=== PATIENT | female | born 1940 | race Caucasian/White ===

== ENCOUNTER 2023-08-26 06:33 | Inpatient (IN) | payer MEDICARE, BC, SELFPAY ==
--- NOTE | 2023-07-26 13:44 | CM ---
Patient is scheduled for an elective L Reverse TSA on 08/26/23. Spoke with patient prior to surgery via telephone. Patient had a L THR (2017) and R THR and R TKR (both in 2020) at . Reintroduced role of Orthopedic Navigator. Patient reports that she
lives with her significant other in a two story home. There is one step to enter and a flight of steps to the second floor (bilateral rails). There is a powder room on the first floor. She currently functions independently and uses a cane at times.
She also has a rolling walker, toilet rails, hip kit and raised toilet seat. She has had VN services through [facility]. PCP id Dr. Uriel Iniguez.
Discussed orthopedic program and post surgical plans. Reviewed anticipated length of stay and assistance that she may need at discharge. Explained that goal is for him to return home at discharge. Also reviewed MD follow up and transition to
outpatient therapy. Patient is in agreement with tentative plan and states that her significant other will be home with her and can assist if needed.
Patient will complete online education.
Plan: Orthopedic Navigator will be involved in the care of patient after surgery and will reassess discharge needs at that time.
[2023-08-03 12:21] VITALS: BMI 28.5
[2023-08-03 13:52] LABS: Hematocrit 39.6 % (37.0-47.0); Hemoglobin 14.1 g/dL (12.0-16.0); Mean Corp Hgb Conc. 35.6 g/dL (33.0-37.0); Mean Corpuscular Hgb 33.9 pg (27.0-31.0); Mean Corpuscular Volume 95.2 fL (81.0-99.0); Mean Platelet Volume 9.2 fL (7.4-10.4); Platelet Count 362 10^3/uL (130-400); Red Blood Cell Count 4.16 10^6/uL (4.20-5.40); Red Cell Dist. Width 12.5 % (11.5-14.5); White Blood Cell Count 6.2 10^3/uL (4.8-10.8)
[2023-08-03 14:12] LABS: ALT (SGPT) 25 U/L (0-35); AST (SGOT) 34 U/L (14-36); Albumin 4.3 g/dl (3.5-5.0); Alkaline Phosphatase 46 U/L (38-126); Blood Urea Nitrogen 11 mg/dl (7-17); Calcium 9.7 mg/dl (8.4-10.2); Carbon Dioxide 29 mmol/L (22-30); Chloride 95 mmol/L (98-107); Estimated Creatinine Clearance 58 ml/min; Glucose 107 mg/dl (70-99); Potassium 4.2 mmol/L (3.5-5.1); Sodium 132 mmol/L (135-145); Total Bilirubin 0.8 mg/dl (0.2-1.3); Total Protein 7.2 g/dl (6.3-8.2); eGFR > 60.00
[2023-08-03 15:29] VITALS: BMI 28.5
[2023-08-04 10:37] LABS: Glycohemoglobin (HgbA1c) 5.3 % (4.0-5.6)
[2023-08-26] VITALS (15 sets, daily range): BP systolic 117–162; BP diastolic 72–95; PULSE 81; O2SAT 95
[2023-08-26] MEDS: TYLENOL 1000 MG PO (09:58)
[2023-08-26] MEDS: CELEBREX 200 MG PO (09:59)
[2023-08-26] MEDS: NORMOSOL-R 1000 IV (10:00)
--- NOTE | 2023-08-26 10:16 | CM ---
Reviewed chart. Patient admitted as planned for elective L Reverse TSA. The discharge plan is for patient to return home at discharge. She will have support from her significant other when she goes home. Reviewed that she will do a home exercise
program upon discharge after surgery and that she will not need VN services. Also reviewed transition to outpatient PT and MD follow up.
Patient will use [facility] for discharge prescriptions.
No needs currently identified.
--- NOTE | 2023-08-26 11:29 | W.PN.UPDATE ---
Update Note
Progress Note Update
L shoulder OA s/p L Reverse TSA w/ Dr Pederson 08/26/23
- s/p R TKA, 04/2022, R DEACON, 06/2021, and L DEACON, 05/2018, by Dr Galindo
DVT prophylaxis - ASA, b/l venous foot pumps
HTN - + parameters - monitor BP
PACs, asymptomatic, RBBB, and long QT syndrome - monitor on tele
- Avoid QT prolongation meds such as Zofran
GERD - add Pepcid HS
Multilevel degenerative disc disease with radiculopathy - consider Gabapentin or Lyrica
Daily alcohol - reported 3 glasses of wine/daily
- Add thiamine and folic acid daily
- Watch for potential s/sx of withdrawal
Hyperlipidemia
Venous varicosities, status post bilateral lower extremity venous ligation
Dysphagia
Colon polyps
History of diverticulitis with perforation, status post sigmoidectomy and colostomy with subsequent reversal
Fatty liver disease
Occipital neuralgia 2017
Raynaud's syndrome
Pelvic floor dysfunction, completing pelvic floor therapy
Anxiety
Osteopenia
Insomnia
Sinus infection, early July 2022, resolved with Azithromycin
Mild hyponatremia
Remote history of tobacco abuse
--- NOTE | 2023-08-26 13:00 | SUR.PHASEI ---
Pt observed to have slight drooping to left eyelid upon admission to PACU, Dr. Pichardo notified and at pt bedside to evaluate. Per Dr. 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
[2023-08-26] MEDS: DILAUDID 0.25 MG IV ×2 (13:08→13:24)
[2023-08-26] MEDS: NSS 1000 IV (14:04)
[2023-08-26] MEDS: ORETIC PO (15:51)
--- NOTE | 2023-08-26 16:11 | PTCARENOTE ---
Received patient around 1445 via bed in stable condition. Left arm in sling with +movement + sensation slight tingle in right thumb. Tele on patient. Pain controlled. Patient DTV about 1840. Patient and significant other oriented to room. Call [facility]
in place.
[2023-08-26] MEDS: FOLVITE 1 MG PO (16:18)
[2023-08-26] MEDS: VITAMIN B1 100 MG PO (16:18)
[2023-08-26] MEDS: TYLENOL 650 MG PO ×2 (16:18→20:42)
[2023-08-26] MEDS: ZETIA 10 MG PO (16:18)
[2023-08-26] MEDS: ASPIRIN 325 MG PO (17:27)
[2023-08-26] MEDS: ANCEF 5 IV (17:27)
[2023-08-26] MEDS: COZAAR 100 MG PO (20:41)
[2023-08-26] MEDS: ORETIC 25 MG PO (20:42)
[2023-08-26] MEDS: ATIVAN 0.5 MG PO (20:42)
[2023-08-26] MEDS: SENOKOT 17.1999999999999993 MG PO (20:42)
[2023-08-26] MEDS: COLACE 100 MG PO (20:42)
[2023-08-26] MEDS: BACTROBAN 2% OINTMENT 1 APPLIC NASAL (20:43)
--- NOTE | 2023-08-26 21:26 | PTCARENOTE ---
Pt voided 260cc yellow urine in hat at 19:30. declined PVR bladder scan.
[2023-08-26] MEDS: ROXICODONE 5 MG PO (22:45)
[2023-08-27] MEDS: TYLENOL PO ×2 (00:14→04:01)
[2023-08-27] MEDS: ANCEF 5 IV (02:07)
[2023-08-27] MEDS: ROXICODONE 10 MG PO (03:25)
[2023-08-27 03:47] VITALS: BP 149/90
[2023-08-27 07:16] VITALS: BP 132/66
--- NOTE | 2023-08-27 07:46 | W.PN.ORTHO ---
Today's Communication / Plan
-
Sling
PT
Nonweightbearing left upper extremity
Aspirin for DVT prophylactics
Discharged home today
Assessment
.
Distal Motor Intact: Yes
Dressing:
Clean, dry and intact.
Plan
.
Surgery / Date: L reverse TSA 08/26/23 Dr Pederson
DVT Prophylaxis: Aspirin
Activity:
Out of bed.
PT/OT
Discharge Plan: Home w/ VN
Subjective
.
.:
Patient resting comfortably.
Vital Signs and Labs
.
Vital Signs and Labs:
Lab Results
08/03/23 12:13
08/03/23 12:13
Temp Pulse Resp BP Pulse Ox
98.6 F 80 18 149/90 91
08/27/23 03:47 08/27/23 03:47 08/27/23 03:47 08/27/23 03:47 08/27/23 03:47
Non-invasive Hgb result: 12.0
[2023-08-27] MEDS: TOPROL XL 25 MG PO (08:30)
[2023-08-27] MEDS: CELEBREX 200 MG PO (08:30)
[2023-08-27] MEDS: ZETIA 10 MG PO (08:30)
[2023-08-27] MEDS: FOLVITE 1 MG PO (08:30)
[2023-08-27] MEDS: VITAMIN B1 100 MG PO (08:30)
[2023-08-27] MEDS: SENOKOT PO ×2 (08:30→08:41)
[2023-08-27] MEDS: ASPIRIN 325 MG PO (08:31)
[2023-08-27] MEDS: TYLENOL 650 MG PO (08:31)
[2023-08-27] MEDS: COLACE PO ×2 (08:31→08:41)
[2023-08-27] MEDS: BACTROBAN 2% OINTMENT 1 APPLIC NASAL (08:31)
[2023-08-27] MEDS: ORETIC 25 MG PO (08:33)
--- NOTE | 2023-08-27 08:45 | W.DS.TRANS ---
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
-
Discharge Instructions:
Sleep Apnea Risk Low
Discharge Diagnosis/Procedures L shoulder OA s/p L Reverse TSA w/ Dr Pederson
24
Diet Regular
Activity As tolerated
Additional Activity Non-weightbearing left upper extremity
Driving Restrictions Not until seen by your Dr
Bathing Restrictions OK to Shower
Wound Care Leave dressing on until seen by your surgeon's
office in 2 weeks for follow-up.
Instructions:
Stand-Alone Forms: Total Shoulder Replacement D/C
Changes to Home Medications: No
Discharge Medications:
DC Medications w/original date entered in [facility]
azelastine 137 mcg (0.1 %) nasal spray aerosol 2 spray intranasal BID Allergies 06/08/21
hydrochlorothiazide 25 mg tablet 25 mg PO DAILY Fluid retention/Swelling ##0 06/30/21
losartan 100 mg tablet 100 mg PO HS Blood pressure ##0 06/30/21
Zinc 50 mg PO DAILY Supplement 04/02/22
cholecalciferol (vitamin D3) 800 unit PO DAILY Supplement 04/02/22
ezetimibe 10 mg tablet 10 mg PO DAILY High cholesterol 04/02/22
phendimetrazine tartrate 35 mg tablet 35 mg PO DAILY Weight Gain 04/02/22
vitamin B complex 1 - 2 tab PO DAILYPRN PRN vitamin b12 deficiency 04/02/22
lorazepam 0.5 mg tablet 0.5 mg PO HS ANXIETY #0 tabs 04/27/22
glucosamine-chondroitin 250 mg-200 mg tablet (Osteo Bi-Flex) 2 tab PO DAILY 08/03/23
mupirocin 2 % topical ointment 1 applic intranasal BID #1 tube 08/03/23
psyllium husk 0.4 gram capsule (Fiber (psyllium husk)) 0.8 g PO DAILY 08/03/23
semaglutide (weight loss) 2.4 mg/0.75 mL subcutaneous pen injector (Wegovy) 2.4 mg SC SA 08/03/23
sennosides 8.6 mg tablet (Senokot) 17.2 mg PO HS 08/03/23
metoprolol succinate 25 mg tablet,extended release 24 hr 25 mg PO DAILY 08/15/23
oxycodone 5 mg capsule 5 mg PO Q4H PRN constipation #60 caps 08/27/23
Home Medication Changes
Pending Results: No
[2023-08-27 08:55] VITALS: BP 160/95; BP 171/99; PULSE 130; PULSE 86
--- NOTE | 2023-08-27 09:36 | CM ---
CM following re: discharge planning.
Reviewed pt's chart, met with pt.
Discharge order noted. Pt is aware, expressed her agreement with discharge. IMM reviewed, placed on chart, pt has a copy. Pt stated her partner is coming to transport home. Pt has no skilled services needs.
D/C plan: home no needs. Family support. Partner to transport
== END 2023-08-27 11:07 | disposition home or self-care (01) | DRG 483 ==
LOC: 2 SOUTH 06:33
PROVIDERS: ADMITTING PHYSICIAN Specialist; FAMILY PHYSICIAN Internal Medicine
PROC: 0LS40ZZ Reposition Left Upper Arm Tendon, Open Approach (ICD-10-PCS; 2023-08-26)
PROC: 3E0T33Z Introduction of Anti-inflammatory into Peripheral Nerves and Plexi, Percutaneous Approach (ICD-10-PCS; 2023-08-26)
PROC: 3E0T3BZ Introduction of Anesthetic Agent into Peripheral Nerves and Plexi, Percutaneous Approach (ICD-10-PCS; 2023-08-26)
PROC: 0RRK00Z Replacement of Left Shoulder Joint with Reverse Ball and Socket Synthetic Substitute, Open Approach (ICD-10-PCS; 2023-08-26)
DX: M19.012 Primary osteoarthritis, left shoulder (principal); E87.1 Hypo-osmolality and hyponatremia; I10 Essential (primary) hypertension; E78.5 Hyperlipidemia, unspecified; I45.10 Unspecified right bundle-branch block; K21.9 Gastro-esophageal reflux disease without esophagitis; R13.10 Dysphagia, unspecified; K76.0 Fatty (change of) liver, not elsewhere classified; I49.1 Atrial premature depolarization; M54.81 Occipital neuralgia; M54.10 Radiculopathy, site unspecified; I73.00 Raynaud's syndrome without gangrene; F10.90 Alcohol use, unspecified, uncomplicated; F41.9 Anxiety disorder, unspecified; M85.80 Other specified disorders of bone density and structure, unspecified site; G47.00 Insomnia, unspecified; Z87.891 Personal history of nicotine dependence; Z96.643 Presence of artificial hip joint, bilateral; Z88.8 Allergy status to other drugs, medicaments and biological substances; Z86.010 Personal history of colon polyps; Z90.49 Acquired absence of other specified parts of digestive tract; Z87.19 Personal history of other diseases of the digestive system
CPT/HCPCS: 36415; 73020; 80053; 83036; 85027; 86850; 86900; 86901; 87070; 97166; 97535; C1713; C1776

== ENCOUNTER → 2023-12-09 09:34 | Outpatient (REF) | payer MEDICARE, BC, SELFPAY ==
[2023-12-09 12:19] LABS: ALT (SGPT) 19 U/L (0-35); AST (SGOT) 26 U/L (14-36); Alkaline Phosphatase 54 U/L (38-126); Direct Bilirubin 0.3 mg/dl (0.0-0.4); HDL Cholesterol 65 mg/dl; LDL Cholesterol, Calculated 118 mg/dl; Total Bilirubin 0.6 mg/dl (0.2-1.3); Total Cholesterol 197 mg/dl (50-199); Total Protein 7.1 g/dl (6.3-8.2); Triglyceride 71 mg/dl (10-149); Very Low Density Lipoprotein 14 mg/dl (0-30)
== END ==
LOC: HWLAB 09:34
PROVIDERS: ATTENDING PHYSICIAN Internal Medicine
DX: E78.5 Hyperlipidemia, unspecified (principal); I10 Essential (primary) hypertension; E78.00 Pure hypercholesterolemia, unspecified
CPT/HCPCS: 36415; 80061; 80076

== ENCOUNTER → 2024-05-30 10:28 | Outpatient (REF) | payer MEDICARE, BC, SELFPAY | LOC: HWWDC 10:28 | PROVIDERS: ATTENDING PHYSICIAN Obstetrics & Gynecology; FAMILY PHYSICIAN Internal Medicine | DX: Z12.31 Encounter for screening mammogram for malignant neoplasm of breast (principal) | CPT/HCPCS: 77063; 77067 ==

== ENCOUNTER → 2024-07-31 09:51 | Outpatient (REF) | payer MEDICARE, BC, SELFPAY ==
[2024-07-31 11:42] LABS: % Basophils 0.6 % (0-2); % Eosinophils 1.2 % (0-6); % Immature Granulocytes 0.4 % (0-0.5); % Lymphocytes 22.1 % (20.5-51.1); % Monocytes 13.1 % (1.7-9.3); % Neutrophils 62.6 % (42.2-75.2); Absolute Eosinophils 0.1 10^3/uL (0-0.7); Absolute Lymphocytes 1.1 10^3/uL (1.2-3.4); Absolute Monocytes 0.7 10^3/uL (0.1-0.6); Absolute Neutrophils 3.1 10^3/uL (1.4-6.5); Hematocrit 39.1 % (37.0-47.0); Hemoglobin 12.9 g/dL (12.0-16.0); Mean Corpuscular Hgb 33.1 pg (27.0-31.0); Mean Corpuscular Volume 100.3 fL (81.0-99.0); Mean Platelet Volume 9.4 fL (7.4-10.4); Nucleated Red Blood Cells % 0 %; Platelet Count 278 10^3/uL (130-400); Red Cell Dist. Width 12.5 % (11.5-14.5)
[2024-07-31 12:33] LABS: ALT (SGPT) 19 U/L (0-35); AST (SGOT) 24 U/L (14-36); Albumin 4.3 g/dl (3.5-5.0); Alkaline Phosphatase 54 U/L (38-126); Blood Urea Nitrogen 12 mg/dl (7-17); Calcium 8.9 mg/dl (8.4-10.2); Carbon Dioxide 27 mmol/L (22-30); Chloride 95 mmol/L (98-107); Glucose 99 mg/dl (70-99); HDL Cholesterol 56 mg/dl; LDL Cholesterol, Calculated 141 mg/dl; Potassium 4.2 mmol/L (3.5-5.1); Sodium 132 mmol/L (135-145); Total Cholesterol 214 mg/dl (50-199); Total Protein 7.1 g/dl (6.3-8.2); Triglyceride 85 mg/dl (10-149); Very Low Density Lipoprotein 17 mg/dl (0-30); eGFR > 60.00
== END ==
LOC: HWLAB 09:51
PROVIDERS: ATTENDING PHYSICIAN Internal Medicine
DX: Z00.01 Encounter for general adult medical examination with abnormal findings (principal); E78.5 Hyperlipidemia, unspecified; I10 Essential (primary) hypertension
CPT/HCPCS: 36415; 80053; 80061; 85025

== ENCOUNTER → 2024-08-10 12:57 | Outpatient (REF) | payer MEDICARE, BC, SELFPAY ==
[2024-08-10 15:41] LABS: Magnesium 1.9 mg/dl (1.6-2.3)
[2024-08-10 16:12] LABS: TSH Reflex To Free T4 2.63 uIU/ml (0.47-4.68)
[2024-08-10 16:31] LABS: Vitamin B12 215 pg/ml (239-931)
== END ==
LOC: HWLAB 12:57
PROVIDERS: ATTENDING PHYSICIAN Internal Medicine
DX: E66.3 Overweight (principal); I10 Essential (primary) hypertension; R25.2 Cramp and spasm; D75.89 Other specified diseases of blood and blood-forming organs
CPT/HCPCS: 36415; 82607; 83735; 84443

== ENCOUNTER → 2024-09-14 09:10 | Outpatient (REF) | payer MEDICARE, BC, SELFPAY | LOC: HWRCS 09:10 | PROVIDERS: ATTENDING PHYSICIAN Internal Medicine; FAMILY PHYSICIAN Internal Medicine | DX: I77.810 Thoracic aortic ectasia (principal) | CPT/HCPCS: 93306 ==

== ENCOUNTER → 2025-01-08 14:19 | Outpatient (REF) | payer MEDICARE, BC, SELFPAY | LOC: HWRAD 14:19 | PROVIDERS: ATTENDING PHYSICIAN Pain Medicine Interventional Pain Medicine; FAMILY PHYSICIAN Internal Medicine; REFERRING PHYSICIAN Chiropractor | DX: M54.50 Low back pain, unspecified (principal) | CPT/HCPCS: 72114 ==

== ENCOUNTER → 2025-01-31 09:45 | Outpatient (REF) | payer MEDICARE, BC, SELFPAY ==
[2025-01-31 13:43] LABS: ALT (SGPT) 27 U/L (0-35); AST (SGOT) 35 U/L (14-36); Albumin 4.5 g/dl (3.5-5.0); Alkaline Phosphatase 51 U/L (38-126); HDL Cholesterol 59 mg/dl; LDL Cholesterol, Calculated 146 mg/dl; Total Protein 7.6 g/dl (6.3-8.2); Very Low Density Lipoprotein 14 mg/dl (0-30)
== END ==
LOC: HWLAB 09:45
PROVIDERS: ATTENDING PHYSICIAN Internal Medicine
DX: E78.5 Hyperlipidemia, unspecified (principal); I10 Essential (primary) hypertension
CPT/HCPCS: 36415; 80061; 80076

== ENCOUNTER 2025-03-14 22:22 | Emergency (ER) | payer MEDICARE, BC, SELFPAY ==
[2025-03-14 22:25] VITALS: BP 127/87
[2025-03-14 23:38] VITALS: BMI 29.7
[2025-03-14 23:49] VITALS: BP 141/79
[2025-03-15] VITALS: BP 136/82
--- NOTE | 2025-03-15 00:19 | ED.GENMED ---
History of Present Illness
General
Chief Complaint: Fall
Source: patient
Exam Limitations: none
Time Seen by Provider: 03/14/25 23:41
Nursing documentation reviewed up to this point in time: agreed with
History of Present Illness
History of Present Illness:
84-year-old female that fell in her bathroom this evening. EMS was called to assist her up. She did suffer a lack to the posterior scalp. Patient denies headache, nausea vomiting dizziness chest pain or shortness of breath. She is not on any
blood thinners. She does have a history of syncopal episodes multiple times in the past. She feels that she may have had a syncopal episode.
Past History
Past History
ED Past Medical History: HTN, Hypercholesterolemia and Other (Diverticulosis, diverticulitis, pyelonephritis, DJD of left hip, occipital neuralgia 2011, Raynaud's syndrome); Negative NIDDM or GA
ED Past Surgical History: Bowel resection (Colon resection with colostomy for diverticulitis. Colostomy reversal September 2017.), Gynecological (Hysterectomy) and Other (Bilateral tubal ligation, oral surgery)
Social History
Tobacco: Non-smoker
Alcohol: None
Drug: None
Personal:
Living: alone
Employment: Retired
Family History
Family History: Other (Noncontributory)
Phy Exam
General Physical Exam
General Presentation: well appearing and no apparent distress
General Skin: warm and dry
General Habitus: normal
General Mental: alert
General Hydration: appears well hydrated
ENT Exam
ENT Exam: EOMI, pharynx normal, neck supple and normocephalic
Eye Exam
Eye Exam: PERRL, cornea clear and conjunctiva normal
Cardiovascular Exam
Cardiovascular Exam: regular rate/rhythm, no edema, no murmur and normal peripheral pulses
Pulmonary Exam
Pulmonary Exam: lungs clear, no respiratory distress, no rales, no crackles, no rhonchi, no stridor, no wheezing and no cough
Gastrointestinal Exam
Gastrointestinal Exam: normal bowel sounds, non tender, soft, no organomegaly, no pulsatile mass and non distended
Neurological Exam
Neurological Exam: alert, oriented x3, no motor deficits and speech normal
Musculoskeletal Exam
Musculoskeletal Exam: full ROM and no edema
Skin Exam
Skin Exam: normal color, warm/dry, no rash and no petechia
Psychiatric Exam
Psychiatric Exam: normal mood/affect
Course
Orders/Labs/Results
Orders:
Orders
03/14/25 22:28
CT Cervical Spine W/o Iv Contr Urgent
Comment:
Reason For Exam: fall with head strike
CT Head W/o Iv Contrast Urgent
Comment:
Reason For Exam: fall with head strike
Sacrum/Coccyx 2 View CR [CR Sacrum/coccyx Min 2 View] Urgent
Comment:
Reason For Exam: fall
03/15/25 00:16
Tetanus/Diphth/Acelpertussis [Adacel] 0.5 ml IM .ONCE ONE
03/15/25 00:25
Oxycodone [Roxicodone] 10 mg PO NOW STA
03/15/25 01:30
Orthostatic VS- Treatment ONCE
Vital Signs
Initial and Last Documented VS:
Initial Vital Signs
Temp Pulse Resp BP Pulse Ox
98.7 F 93 16 127/87 97
03/14/25 22:25 03/14/25 22:25 03/14/25 22:25 03/14/25 22:25 03/14/25 22:25
Last Documented Vital Signs
Temp Pulse Resp BP Pulse Ox
98.7 F 97 20 155/74 97
03/14/25 22:25 03/15/25 02:12 03/15/25 02:12 03/15/25 02:12 03/15/25 00:20
*Pulse Oximetry
SaO2: 97
Oxygen Mode of Delivery: Room air
Patient hypoxic: no
*Critical Care Note
Total Time (30-74mins, 75-104mins- exclusive of procedures): Not Applicable
Update Note
Update Note:
NAME: KELVIN VALENCIA
DATE OF EXAM: 03/14/2025
Patient No: [id number]
Physician: PACO^Braden
Date of : 1940
Past Medical History (entered by Technologist):
Reason For Exam (entered by Technologist): pt arrives by ems from home after mechanical fall at home. +head strike, -loc, -thinners
Other Notes (entered by Technologist): prev sent
Additional Information (per [facility]):
CT HEAD (without IV contrast)
CT CERVICAL SPINE (without IV contrast)
IMPRESSION:
HEAD
No acute intracranial abnormality.
No acute intracranial hemorrhage, evidence of acute large territorial infarction, mass or mass effect.
No calvarial fracture.
Mild chronic microvascular ischemic changes of cerebral white matter.
Mild cerebral volume loss.
C-SPINE
No acute fracture.
Normal cervical spine alignment.
Mild chronic multilevel degenerative changes when considering patient's age.
Left shoulder arthroplasty.
Report faxed to the ER and radiology departments and/or is made available via EMR at 11:48 PM ET. Please do not hesitate to contact [facility] at the above number if there are specific questions regarding this study.
Derrek Walker M.D.
This report has been electronically signed and verified by the Radiologist whose name is printed above.
Patient ambulated around the department with a brisk and steady gait. Orthostatics were normal. CT scan of the head and cervical spine negative. X-ray of the coccyx was negative. Patient was stapled. There is a 3-1/2 cm laceration to the
posterior scalp. Horizontal in orientation. Clean. Wound explored to its base and no distinct foreign body found. 5 devin were applied. Patient tolerated procedure well with no immediate adverse effect. Adacel given as a booster since her
last tetanus shot was in 2012.
ED Attending Note
-
Portions of this chart may have been created with voice recognition software.� Occasional wrong word or��sound alike� substitutions may have occurred due to the inherent limitations of voice recognition software.
Discharge Plan
Departure
Patient Disposition: Home (Routine Discharge)
Date of Disposition: 03/15/25
Time of Disposition: 02:34
Patient with high blood pressure during this ER visit?: Yes
Condition: Good
Discharge Problem:
Near syncope, Laceration of scalp, Acute coccygeal pain
Instructions: Wound Care (DC), Head Injury in Adults (DC), Laceration Repair With Conception (DC), Coccyx Injury ED, BLOOD PRESSURE
Prescriptions:
New
docusate sodium [Colace] 100 mg capsule
100 mg PO BID Qty: 20 0RF
No Action
azelastine 1 SPRAY aerosol,spray
2 spray intranasal BID
hydrochlorothiazide 25 MG tablet
25 mg PO DAILY Qty: 0 0RF
losartan 100 MG tablet
100 mg PO HS Qty: 0 0RF
phendimetrazine tartrate 35 mg Tablet
35 mg PO DAILY
vitamin B complex Tablet
1 - 2 tab PO DAILYPRN PRN (Reason: vitamin b12 deficiency)
ezetimibe 10 mg Tablet
10 mg PO DAILY
Zinc 50 MG
50 mg PO DAILY
cholecalciferol (vitamin D3) 800 UNIT
800 unit PO DAILY
lorazepam 0.5 MG tablet
0.5 mg PO HS Qty: 0 0RF
Wegovy 2.4 mg/0.75 mL Pen Injector
2.4 mg SC SA
sennosides [Senokot] 8.6 mg Tablet
17.2 mg PO HS
glucosamine-chondroitin [Osteo Bi-Flex] 250-200 mg Tablet
2 tab PO DAILY
psyllium husk [Fiber (psyllium husk)] 0.4 gram Capsule
0.8 g PO DAILY
mupirocin 2 % ointment
1 applic intranasal BID Qty: 1 0RF
Patient Comments:
last dose was this am, 08/26/23
metoprolol succinate 25 mg Tablet Extended Release 24 Hr
25 mg PO DAILY
sennosides [Senokot] 8.6 mg tablet
8.6 mg PO BID PRN (Reason: constipation) Qty: 60 0RF
aspirin 325 mg tablet
325 mg PO DAILY Qty: 30 0RF
Rx Instructions:
Take for 30 days after surgery
acetaminophen 500 mg tablet
1,000 mg PO Q6H PRN (Reason: fever or pain) Qty: 90 0RF
oxycodone 5 mg capsule
5 mg PO Q4H PRN (Reason: constipation) Qty: 60 0RF
docusate sodium [Colace] 100 mg capsule
100 mg PO BID Qty: 60 0RF
Referrals:
Lars Iniguez MD [Family Provider, Internal Medicine]
Activity Restrictions/Additional Instructions:
Your prescriptions were sent electronically to the pharmacy that you specified.
Devin can be removed in 5 to 7 days.
Thank You for choosing [facility].
It was a pleasure meeting you and taking part in your care. We hope for your continued healing and wellness.
Please read discharge instructions in their entirety. However, they are for general education and may not describe your exact diagnosis at discharge. Information on your ER visit and medical conditions were discussed with you along with appropriate
follow up information...
If indicated, please take your medications as instructed and indicated on discharge paperwork.
Please schedule a follow up appointment as directed. Call to schedule an appointment
Please return to the emergency department with ANY change in, persisting, or worsening of symptoms. If any of your symptoms do not improve, or persist, or become more severe within 6-12 hours, please return to the emergency department for further
care.
Please return to the emergency department if you develop a headache, neck pain/stiffness, fever greater than 100.4F, chest pain, shortness of breath, persistent nausea, vomiting, slurred speech, difficulty walking, numbness/tingling, weakness, signs
of infection or any other symptoms that are worrisome to you.
If you have any questions or concerns please do not hesitate to call the Hospital at or E-mail me directly at [email or web address]
Interventions
Interventions:
*Risk Screen - Suicide Last Done: 03/14/25 22:25
*General Assessment Last Done: 03/14/25 22:25
*Neglect/Abuse Screening Last Done: 03/14/25 22:25
*ED- Fall Risk Assessment Last Done: 03/14/25 23:39
*ED COVID-19 Vaccine History Last Done: 03/14/25 23:39
ED-Musculoskeletal Assessment Last Done: 03/14/25 23:40
ED- Neurological Assessment Last Done: 03/14/25 23:40
ED-Skin Assessment Last Done: 03/14/25 23:41
Discharge Date and Time
Print Language: BOLIVIAN
[2025-03-15] MEDS: ROXICODONE 10 MG PO (00:29)
[2025-03-15] MEDS: ADACEL 0.5 ML IM (00:30)
[2025-03-15 02:07] VITALS: BP 157/92
[2025-03-15 02:09] VITALS: BP 162/93
[2025-03-15 02:12] VITALS: BP 155/74
[2025-03-15 02:17] VITALS: BP 155/74; BP 157/92; BP 162/93; PULSE 94; PULSE 95; PULSE 99
== END 2025-03-15 03:01 | disposition home or self-care (01) ==
LOC: EMR 22:22
PROVIDERS: EMERGENCY PHYSICIAN Student in an Organized Health Care Education/Training Program; FAMILY PHYSICIAN Internal Medicine
DX: R55 Syncope and collapse (principal); S01.01XA Laceration without foreign body of scalp, initial encounter; M53.3 Sacrococcygeal disorders, not elsewhere classified; W19.XXXA Unspecified fall, initial encounter; Y92.002 Bathroom of unspecified non-institutional (private) residence as the place of occurrence of the external cause; E78.00 Pure hypercholesterolemia, unspecified; I10 Essential (primary) hypertension; Z23 Encounter for immunization
CPT/HCPCS: 12002; 90471; 99284; 70450; 72125; 72220; 90715

== ENCOUNTER → 2025-03-25 11:32 | Outpatient (REF) | payer MEDICARE, BC, SELFPAY | LOC: HWLAB 11:32 | PROVIDERS: ATTENDING PHYSICIAN Internal Medicine | DX: I10 Essential (primary) hypertension (principal) | CPT/HCPCS: 36415; 82088 ==

== ENCOUNTER → 2025-03-27 09:33 | Outpatient (REF) | payer MEDICARE, BC, SELFPAY | LOC: RCS 09:33 | PROVIDERS: ATTENDING PHYSICIAN Internal Medicine; FAMILY PHYSICIAN Internal Medicine | DX: I49.1 Atrial premature depolarization (principal) | CPT/HCPCS: 93225; 93226 ==

== ENCOUNTER → 2025-06-15 22:00 | Outpatient (REF) | payer MEDICARE, BC, SELFPAY | LOC: DHSLP 22:00 | PROVIDERS: ATTENDING PHYSICIAN Internal Medicine Cardiovascular Disease; FAMILY PHYSICIAN Internal Medicine | DX: G47.33 Obstructive sleep apnea (adult) (pediatric) (principal); R09.02 Hypoxemia | CPT/HCPCS: 95800 ==